=== PATIENT | male | born 1980 | race Native Hawaiian/Other Pacific Islander ===

== ENCOUNTER 2019-05-05 10:07 | Emergency (ER) | payer OTHER ==
[2019-05-05] MEDS ORDERED: XYLOCAINE 1% MPF 5 mL INFILTRATI ONE (11:21)
--- NOTE | 2019-05-05 11:24 | Emergency Department Report ---
HPI - General Chief Complaint: Skin/Abscess/Foreign Body Time Seen by Provider: 05/05/19 10:37 - HPI HPI: 39-year-old male presents to the emergency department with an abscess to the left posterior upper leg, just below the buttock, that has been going on for the past week. It is swollen, painful, red and has been doing some drainage. The patient has been soaking the area for about 1-2 hours per day. No fever. ED Past Medical Hx - Past Medical History Previous Medical History?: No - Surgical History Past Surgical History?: No - Social History Smoking Status: Never Smoker Substance Use Type: None - Medications Home Medications: Home Medications Medication Instructions Recorded Confirmed Last Taken Type HYDROcodone/APAP 5-325 [[place] 1 each PO Q6HR PRN #10 tablet 05/05/19 Unknown Rx 5/325] Sulfamethoxazole/Trimethoprim 1 each PO BID #14 tablet 05/05/19 Unknown Rx [Bactrim DS TAB] ED Review of Systems ROS: Stated complaint: (L) BUTTOCK PAIN/DRAINAGE Other details as noted in HPI Comment: All other systems reviewed and negative Constitutional: denies: chills, fever Skin: lesions (abscess), change in color Neurological: denies: numbness, paresthesias Physical Exam - Physical Exam Vital Signs: Vital Signs 05/05/19 10:14 Temperature 98.5 F Pulse Rate 87 Respiratory 14 Rate Blood Pressure 112/68 O2 Sat by Pulse 98 Oximetry Physical Exam: GENERAL: The patient is well-developed well-nourished. HENT: Normocephalic. Atraumatic. Patient has moist mucous membranes. EYES: Extraocular motions are intact. Pupils equal reactive to light bilaterally. NECK: Supple. Trachea is midline. ABDOMEN: There is no abdominal distention. SKIN: Skin is warm and dry. There is an abscess to the proximal posterior left leg. There is surrounding erythema. The abscess is about 3 inches in its greatest diameter. There is a small central opening with a very mild amount of oozing seen. NEURO: The patient is awake, alert, and oriented. The patient is cooperative. The patient has no focal neurologic deficits. The patient has normal speech. MUSCULOSKELETAL: There is no tenderness or deformity. There is no evidence of acute injury. ED Course Vital Signs 05/05/19 10:14 Temperature 98.5 F Pulse Rate 87 Respiratory 14 Rate Blood Pressure 112/68 O2 Sat by Pulse 98 Oximetry - I & D Left Posterior Proximal Thigh Type of Procedure: Simple Site: left proximal posterior leg Blade Size: 11 I & D Procedure: betadine prep, sterile drapes applied, sterile dressing applied Progress: About 3 mL of 1% lidocaine without epinephrine was used to do local anesthesia. Prior to this, the area was cleaned with a Betadine solution. A 1 cm incision was made with an 11 blade scalpel. My fingers and forceps were used to try to break up any loculations. There was about 2 mL of purulent discharge obtained. There was not enough room for any iodoform gauze packing. The area was cleaned and covered with sterile gauze. There were no obvious complications from this procedure. ED Medical Decision Making - Medical Decision Making This patient presents with a one-week history of an abscess to the left upper leg posteriorly. While there was a small central opening and some oozing, the area still felt fluctuant, despite the soaking in warm water that the patient has been doing. For this reason I decided to do a incision and drainage. I was able to get about 2 mL of purulent return. The patient will be placed on antibiotics. There was not enough room for iodoform gauze packing. The patient will follow up with primary care and return to the ER with any worsening of his symptoms or any acute distress. - Differential Diagnosis abscess, cellulitis, cyst, dermatitis Critical Care Time: No Critical care attestation.: If time is entered above; I have spent that time in minutes in the direct care of this critically ill patient, excluding procedure time. ED Disposition Clinical Impression: Abscess of leg Disposition: [id number] TO HOME OR SELFCARE Is pt being admited?: No Condition: Stable Instructions: Abscess Incision and Drainage (ED), Abscess (ED) Additional Instructions: Please follow up with a primary care physician in the next few days. Return to the emergency Department with any worsening of your symptoms or any acute distress. Take the antibiotics as prescribed. Soak the area or use warm, but not hot, compresses a few times a day to try and express any further infection. Clean the area with soap and water and then make sure it remains dry. You have been prescribed a medication that is sedating and therefore should not be taken prior to driving, working, and responsible for children and in no way should be mixed with alcohol of any quantity. Prescriptions: Sulfamethoxazole/Trimethoprim [Bactrim DS TAB] 1 each PO BID #14 tablet HYDROcodone/APAP 5-325 [[place] 5/325] 1 each PO Q6HR PRN #10 tablet PRN Reason: Pain Referrals: [facility] [Outside] - 2-3 Days Forms: Work/School Release Form(ED) Time of Disposition: 12:00
[2019-05-05 12:13] VITALS: BP 124/77
== END 2019-05-05 12:11 | disposition home or self-care (01) ==
LOC: ED 10:07
DX: L02.416 Cutaneous abscess of left lower limb (principal); Z88.0 Allergy status to penicillin